=== PATIENT | male | born 1940 | race Caucasian/White ===

== ENCOUNTER 2018-06-18 07:38 | Day surgery (SDC) | payer MEDICARE, OTHER ==
[2018-06-18] MEDS ORDERED: Midazolam 1 MG/ML 2 ML SDV IV ONE (07:39)
[2018-06-18] MEDS ORDERED: Sodium Chloride 0.9% 10 ML Syringe IV ONE (07:39)
[2018-06-18] MEDS ORDERED: Cataract Ophth Solution EYERT ONE (09:00)
[2018-06-18] MEDS ORDERED: Sodium Chloride 0.9% 10 ML Syringe FLUSH PRN (09:00)
[2018-06-18] MEDS ORDERED: Moxifloxacin 0.5% Ophth Soln 3 ML Bottle EYERT ONE ×2 (09:00→09:20)
[2018-06-18] MEDS ORDERED: Lidocaine 4% 5 ML Amp EYERT ONE (09:13)
[2018-06-18] MEDS ORDERED: Povidone-Iodine 5% Sterile Ophth Soln 30 ML Bottle EYERT ONE (09:14)
[2018-06-18] MEDS ORDERED: Balanced Salt Solution Ophth Irrig 500 ML Bottle IOCULAR ONE (09:15)
[2018-06-18] MEDS ORDERED: EPINEPHrine 1 MG/ML SDV IV ONE (09:15)
[2018-06-18] MEDS ORDERED: Chondroitin Sulfate/Hyaluronate Sodium Ophth Inj 0.5 ML Syringe EYERT ONE (09:17)
[2018-06-18] MEDS ORDERED: Lidocaine 1% 30 ML SDV ONE (09:17)
[2018-06-18] MEDS ORDERED: Chondroitin Sulfate/Hyaluronate Sodium Ophth Inj 0.75 ML Syringe EYERT ONE (09:17)
[2018-06-18] MEDS ORDERED: prednisoLONE Acetate 1% Ophth Susp 5 ML Bottle EYERT ONE (09:18)
--- NOTE | 2018-06-18 09:43 | PCM.OPNOTE ---
- General Post-Op/Procedure Note Date of Surgery/Procedure: 06/18/18 Operative Procedure(s): Cataract Extraction with Intraocular Lens Implant, Right Eye Findings: As above. 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 The patient was given topical Lidocaine 4% drops in the right eye. The patient was then prepped and draped in the sterile [facility] fashion. A wire lid speculum was placed in the right eye. A clear cornea temporal approach was used. A [address] [place] blade was used to make a paracentesis site around 10:00. Preservative-free Lidocaine 1% was injected intracamerally. Viscoelastic was placed in the anterior chamber. A 2.5 mm keratome blade was used to make a clear corneal incision around 9:00. A cystotome needle and Utrata forceps were used to perform continuous curvilinear capsulorhexis. Balanced Salt Solution was used to perform hydrodissection and hydrodelineation. The lens nucleus was removed using the divide and conquer phacoemulsification technique. Cumulative dissipated energy was 7.45. Remaining cortex was removed using irrigation- aspiration. Viscoelastic was placed in the capsular bag. PCBOO 22.5 diopter lens was then placed in the capsular bag. Remaining viscoelastic was removed using irrigation-aspiration. The lens was well centered in the capsular bag. The paracentesis and corneal incision were found to be water-tight. The patient was given topical Prednisolone and Vigamox drops. The speculum was removed and a shield was placed over the right eye. The patient was taken to recovery in stable condition. I certify that I was present for and performed the entire operative procedure. Hardeep Aguilar M.D.
[2018-06-18 11:02] VITALS: BP 129/64
[2019-06-18] MEDS ORDERED: Lidocaine 4% 5 ML Amp EYERT ONE (09:00)
== END 2018-06-18 10:33 | disposition home or self-care (01) ==
LOC: DL.SDS 07:38
PROVIDERS: ATTEND Ophthalmology
DX: H25.813 Combined forms of age-related cataract, bilateral (principal); I11.0 Hypertensive heart disease with heart failure; I50.1 Left ventricular failure, unspecified; E03.9 Hypothyroidism, unspecified; E78.4 Other hyperlipidemia; G40.309 Generalized idiopathic epilepsy and epileptic syndromes, not intractable, without status epilepticus; F17.200 Nicotine dependence, unspecified, uncomplicated; Z79.82 Long term (current) use of aspirin; Z79.899 Other long term (current) drug therapy
CPT/HCPCS: 00142; 66984; A9270; J0171; J2250; J7050; C1780; J2001

== ENCOUNTER 2019-12-11 16:47 | Emergency (ER) | payer MEDICARE, OTHER ==
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
[2019-12-11 17:17] VITALS: BP 122/65; PULSE 77
== END 2019-12-11 18:08 | disposition home or self-care (01) ==
LOC: DL.ED 16:47
DX: R55 Syncope and collapse (principal); I11.0 Hypertensive heart disease with heart failure; I50.9 Heart failure, unspecified; I48.91 Unspecified atrial fibrillation; I25.10 Atherosclerotic heart disease of native coronary artery without angina pectoris; E78.00 Pure hypercholesterolemia, unspecified; I25.2 Old myocardial infarction; J44.9 Chronic obstructive pulmonary disease, unspecified; Z86.73 Personal history of transient ischemic attack (TIA), and cerebral infarction without residual deficits; F32.9 Major depressive disorder, single episode, unspecified; E03.9 Hypothyroidism, unspecified; Z79.899 Other long term (current) drug therapy; Z79.02 Long term (current) use of antithrombotics/antiplatelets; Z79.82 Long term (current) use of aspirin
CPT/HCPCS: 36415; 71045; 80053; 80307; 84484; 85025; 93005; 99283; 99285-25

== ENCOUNTER 2022-04-30 21:00 | Emergency (ER) | payer MEDICARE, OTHER ==
[2022-04-30] MEDS ORDERED: Sodium Chloride 0.9% 1,000 ML IV ONE (21:12)
[2022-04-30 22:22] LABS: ACETAMINOPHEN 2 ug/mL (10-30 (Therapeutic)); ANION GAP 19.4 mEq/L (7-13); CHLORIDE,CL 112 mmol/L (98-107); SODIUM,NA 150 mmol/L (136-145)
[2022-04-30 22:24] LABS: ESTIMATED GFR 17 mL/min (>=60)
[2022-04-30 22:27] VITALS: BP 118/61; PULSE 59
[2022-04-30] MEDS ORDERED: levETIRAcetam in NaCl (iso-os) 1,000 MG in Premix Bag 1 BAG IV ONE ×2 (22:38)
[2022-04-30] MEDS ORDERED: Tranexamic Acid 1,000 MG in Sodium Chloride 0.9% 100 ML IV ONE (23:11)
== END 2022-05-01 ==
LOC: DL.ED 21:00
DX: I62.00 Nontraumatic subdural hemorrhage, unspecified (principal); I63.9 Cerebral infarction, unspecified; I25.10 Atherosclerotic heart disease of native coronary artery without angina pectoris; I11.0 Hypertensive heart disease with heart failure; I50.9 Heart failure, unspecified; I25.2 Old myocardial infarction; Z79.899 Other long term (current) drug therapy; Z79.82 Long term (current) use of aspirin; Z86.73 Personal history of transient ischemic attack (TIA), and cerebral infarction without residual deficits; Z20.822 Contact with and (suspected) exposure to COVID-19
CPT/HCPCS: 36415; 70450; 71045; 80053; 80143; 80179; 80307; 82140; 82150; 83605; 83690; 83735; 83880; 84484; 85025; 85610; 86140; 87040; 93005; 96361; 96374; 96375; 99285; J1953; J3490; J7030; U0002